=== PATIENT | female | born 1955 | race Caucasian/White ===

== ENCOUNTER 2020-09-13 07:17 | Day surgery (SDC) | payer BC ==
[2020-09-13] VITALS (8 sets, daily range): BP systolic 126–139; BP diastolic 61–97
[~2020-09-13] VITALS: Ht 165.1 cm; Wt 114.4 kg
[2020-09-13] MEDS ORDERED: DULO60CA65 PO (07:56)
[2020-09-13] MEDS ORDERED: DILT360C40 PO (07:56)
[2020-09-13] MEDS ORDERED: METF500T PO (07:56)
[2020-09-13] MEDS ORDERED: LISI1TAB51 PO (07:56)
[2020-09-13] MEDS ORDERED: ESOM20CA PO (07:56)
[2020-09-13 11:37] LABS: BF RBC COUNT 2944 /CU MM; BF WBC COUNT 944 /CU MM (0-1000); BFAPPEAR CLOUDY; BFVOLUME 1 ML
== END 2020-09-13 10:35 | disposition home or self-care (01) ==
LOC: SSTAY O 07:17
PROVIDERS: ATTEND Radiology Diagnostic Radiology
DX: K11.6 Mucocele of salivary gland (principal); F32.9 Major depressive disorder, single episode, unspecified; I10 Essential (primary) hypertension; K21.9 Gastro-esophageal reflux disease without esophagitis; Z85.820 Personal history of malignant melanoma of skin; Z88.2 Allergy status to sulfonamides; Z79.899 Other long term (current) drug therapy
CPT/HCPCS: 10005; 76942; 82948; 87070; 89051